=== PATIENT | male | born 1975 | race Caucasian/White ===

== ENCOUNTER 2019-02-18 19:54 | Emergency (ER) | payer SELFPAY ==
[~2019-02-18] VITALS: Ht 167.6 cm; Wt 91.6 kg
[2019-02-18 20:34] VITALS: BP 122/77
--- NOTE | 2019-02-18 20:34 | NUR ---
PT AMBULATORY TO CHAIR WITH FAMILY
[2019-02-18] MEDS ORDERED: IBUPROFEN 600 MG TAB PO ONE (22:30)
[2019-02-18] MEDS ORDERED: ACETAMINOPHEN 325 MG TAB PO ONE (22:30)
--- NOTE | 2019-02-18 22:37 | NUR ---
PT AMBULATORY TO BED
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
--- NOTE | 2019-02-19 01:06 | NUR ---
Dr. Cox examining patient.
[2019-02-19 01:18] VITALS: BP 126/74
--- NOTE | 2019-02-19 01:18 | NUR ---
Patient discharged with v/s stable. Written and verbal after care instructions given and explained. Patient alert, oriented and verbalized understanding of instructions. Ambulatory with steady gait. All questions addressed prior to discharge. ID band removed. Patient advised to follow up with PMD. Rx of Motrin 600 mg given. Patient educated on indication of medication including possible reaction and side effects. Opportunity to ask questions provided and answered.
== END 2019-02-19 01:18 | disposition home or self-care (01) ==
LOC: MED 19:54
DX: M54.2 Cervicalgia (principal); M54.9 Dorsalgia, unspecified; M79.676 Pain in unspecified toe(s); Z86.73 Personal history of transient ischemic attack (TIA), and cerebral infarction without residual deficits; V89.2XXA Person injured in unspecified motor-vehicle accident, traffic, initial encounter; Y93.89 Activity, other specified; Y92.411 Interstate highway as the place of occurrence of the external cause; Y99.8 Other external cause status
CPT/HCPCS: 72050; 73630; 99283